=== PATIENT | female | born 1990 | race Caucasian/White ===

== ENCOUNTER → 2023-08-16 09:09 | Outpatient (REF) | payer BC, SELFPAY | LOC: PNTC 09:09 | PROVIDERS: ATTENDING PHYSICIAN Obstetrics & Gynecology | DX: O99.210 Obesity complicating pregnancy, unspecified trimester (principal) | CPT/HCPCS: 76805 ==

== ENCOUNTER → 2023-09-13 08:59 | Outpatient (REF) | payer BC, SELFPAY | LOC: PNTC 08:59 | PROVIDERS: ATTENDING PHYSICIAN Obstetrics & Gynecology | DX: O99.210 Obesity complicating pregnancy, unspecified trimester (principal) | CPT/HCPCS: 76811 ==

== ENCOUNTER → 2023-09-27 10:29 | Outpatient (REF) | payer BC, SELFPAY | LOC: PNTC 10:29 | PROVIDERS: ATTENDING PHYSICIAN Obstetrics & Gynecology | DX: O28.3 Abnormal ultrasonic finding on antenatal screening of mother (principal); O35.5XX0 Maternal care for (suspected) damage to fetus by drugs, not applicable or unspecified; O99.210 Obesity complicating pregnancy, unspecified trimester; O34.10 Maternal care for benign tumor of corpus uteri, unspecified trimester | CPT/HCPCS: 76815 ==

== ENCOUNTER 2023-10-10 09:12 | Observation (INO) | payer BC, SELFPAY ==
[2023-10-10 09:28] VITALS: BMI 35.3
[2023-10-10 09:31] VITALS: BP 126/82
[2023-10-10] MEDS: CELESTONE SOLUSPAN 2 MG IM (11:08)
[2023-10-10 11:19] LABS: Urine Albumin Negative (Neg - Trace); Urine Bilirubin Negative (Negative); Urine Character Clear (Clear); Urine Color Yellow; Urine Glucose Negative (Negative); Urine Ketone Negative (Negative); Urine Leukocyte 1+ (Negative); Urine Nitrite Negative (Negative); Urine Occult Blood Negative (Negative); Urine Urobilinogen Negative (Neg - 1+)
[2023-10-10] MEDS: MAGNESIUM SULFATE 100 IV (11:24)
[2023-10-10] MEDS: MAGNESIUM SULFATE 40 GRAM 1000 IV (11:45)
[2023-10-10 11:48] LABS: Urine Bacteria Few (Negative); Urine Red Blood Cell None Seen /HPF (0-2)
== END 2023-10-10 12:00 | disposition short-term general hospital (02) ==
LOC: LDRP 09:12
PROVIDERS: ADMITTING PHYSICIAN Obstetrics & Gynecology
DX: O34.32 Maternal care for cervical incompetence, second trimester (principal); Z3A.24 24 weeks gestation of pregnancy; O99.012 Anemia complicating pregnancy, second trimester; D50.9 Iron deficiency anemia, unspecified; O99.282 Endocrine, nutritional and metabolic diseases complicating pregnancy, second trimester; O34.12 Maternal care for benign tumor of corpus uteri, second trimester; D25.9 Leiomyoma of uterus, unspecified; O32.1XX0 Maternal care for breech presentation, not applicable or unspecified
CPT/HCPCS: 81003; 81015; 82731; 87070; 87086; G0378